=== PATIENT | female | born 1950 | race Caucasian/White ===

== ENCOUNTER 2022-03-08 05:44 | Inpatient (IN) | payer MEDICAID, MEDICARE ==
[2022-03-08] MEDS ORDERED: Diltiazem 25 MG/5 ML SDV IVPUSH ONE ×2 (05:46→07:37)
[2022-03-08] MEDS ORDERED: Albuterol/Ipratropium 3.0-0.5 MG/3 ML Neb Soln NEB ONE (05:46)
[2022-03-08] MEDS ORDERED: methylPREDNISolone Sodium Succinate 125 MG/2 ML SDV IVPUSH ONE (05:48)
[2022-03-08] MEDS ORDERED: Diltiazem 25 MG/5 ML SDV ONE (05:53)
[2022-03-08] MEDS ORDERED: Sodium Chloride 0.9% 1,000 ML IV SCH ×2 (06:00→10:15)
[2022-03-08 06:09] LABS: ESTIMATED GFR 53 mL/min (>60); TROPONIN I HIGH SENSITIVITY 10.5 pg/mL (<=60.3)
[2022-03-08] MEDS ORDERED: cefTRIAXone 2 GM in Sodium Chloride 0.9% 50 ML IV ONE (06:23)
[2022-03-08] MEDS ORDERED: Levofloxacin/Dextrose 5%-Water 750 MG in Premix Bag 1 BAG IV ONE (06:23)
[2022-03-08] MEDS: Diltiazem 100 MG in Sodium Chloride 0.9% 100 ML IV SCH ×4 (06:41→21:53)
[2022-03-08] MEDS ORDERED: Levalbuterol HCl 1.25 MG/3 ML Neb NEB ONE (06:44)
[2022-03-08 07:03] LABS: CORONAVIRUS COVID-19 NAA NEGATIVE (NEGATIVE)
[2022-03-08] MEDS ORDERED: Potassium Chloride 10 MEQ in Premix Bag 1 BAG IV SCH (08:00)
[2022-03-08] MEDS ORDERED: Potassium Chloride 10 MEQ in Premix Bag 1 BAG IV ONE (09:00)
[2022-03-08] MEDS ORDERED: Tiotropium Bromide 4 GM Inhalation Spray (2.5mcg/1 dose; 10 doses) INH SCH (14:14)
[2022-03-08] MEDS ORDERED: Ondansetron 4 MG/2 ML SDV IV PRN (14:14)
[2022-03-08] MEDS ORDERED: Sodium Chloride 0.9% 10 ML Syringe FLUSH PRN (14:14)
[2022-03-08] MEDS ORDERED: Gabapentin 100 MG Cap PO SCH (14:14)
[2022-03-08] MEDS: Albuterol/Ipratropium 3.0-0.5 MG/3 ML Neb Soln NEB SCH ×2 (14:32→20:06)
[2022-03-08] MEDS ORDERED: Doxycycline 100 MG in Sodium Chloride 0.9% 100 ML IV SCH (15:00)
[2022-03-08] MEDS ORDERED: Diltiazem 100 MG AdvVial ONE (15:05)
[2022-03-08] MEDS ORDERED: Sodium Chloride 0.9% 100 ML ONE (15:05)
[2022-03-08] MEDS: methylPREDNISolone Sodium Succinate 40 MG/1 ML SDV IVPUSH SCH ×2 (15:46→22:45)
[2022-03-08] MEDS: Enoxaparin 40 MG/0.4 ML Syringe SUBCUT SCH (15:48)
[2022-03-08] MEDS ORDERED: LORazepam 2 MG/ML SDV ONE (17:31)
[2022-03-08] MEDS ORDERED: LORazepam 2 MG/ML SDV IVPUSH ONE (18:00)
[2022-03-08] MEDS: LORazepam 2 MG/ML SDV IVPUSH PRN ×2 (20:06→22:46)
[2022-03-08] MEDS: Losartan 50 MG Tab PO SCH ×2 (20:21→22:11)
[2022-03-08] MEDS: Pantoprazole 40 MG Tab.CR PO SCH ×2 (20:21→21:47)
[2022-03-08] MEDS: Rosuvastatin 10 MG Tab PO SCH ×2 (20:22→21:47)
[2022-03-08] MEDS: Formoterol/Mometasone 200-5 MCG 8.8 GM Inhaler IH SCH ×2 (20:23→23:17)
[2022-03-08] MEDS: Cyclobenzaprine 10 MG Tab PO SCH ×2 (20:24→21:47)
[2022-03-08] MEDS: Simethicone 125 MG Tab.Chew PO SCH ×2 (20:26→21:47)
[2022-03-08] MEDS: Isosorbide Mononitrate 30 MG Tab.ER PO SCH ×2 (20:26→22:11)
[2022-03-08] MEDS: traZODone 50 MG Tab PO SCH ×2 (20:28→23:15)
[2022-03-08] MEDS: Montelukast 10 MG Tab PO SCH ×2 (20:29→21:47)
[2022-03-08] MEDS: Modafinil 100 MG Tab PO SCH ×2 (20:35→21:47)
[2022-03-08] MEDS ORDERED: SIMETHICONE 80 MG PO SCH (21:00)
[2022-03-08] MEDS ORDERED: MODAFINIL 200 MG PO SCH (21:00)
[2022-03-08] MEDS ORDERED: Non-Formulary Medication 1 Each (Losartan [Cozaar] 100 MG Tablet) PO SCH (21:00)
[2022-03-08] MEDS ORDERED: Non-Formulary Medication 1 Each (Omeprazole [Omeprazole] 40 MG Capsule.Dr) PO SCH (21:00)
[2022-03-08] MEDS ORDERED: Metoprolol Succinate 50 MG Tab.ER PO SCH (21:00)
[2022-03-08] MEDS ORDERED: Non-Formulary Medication 1 Each (Trazodone [Trazodone] 100 MG Tablet) PO SCH (21:00)
[2022-03-08] MEDS: Benzocaine/Cetylpyridinium/Menthol Lozenge MUCMEM PRN (23:24)
[2022-03-09] MEDS: LORazepam 2 MG/ML SDV IVPUSH PRN ×4 (00:19→22:46)
[2022-03-09] MEDS: Albuterol 0.083% 2.5 MG/3 ML Neb Soln NEB PRN (00:22)
[2022-03-09] MEDS: traZODone 50 MG Tab PO SCH (00:25)
[2022-03-09] MEDS: Diltiazem 100 MG in Sodium Chloride 0.9% 100 ML IV SCH ×2 (04:17→10:57)
[2022-03-09] MEDS: cefTRIAXone 1 GM in Sodium Chloride 0.9% 50 ML IV SCH (06:12)
[2022-03-09] MEDS: Albuterol/Ipratropium 3.0-0.5 MG/3 ML Neb Soln NEB SCH ×4 (07:03→20:11)
[2022-03-09] MEDS: Formoterol/Mometasone 200-5 MCG 8.8 GM Inhaler IH SCH ×2 (07:03→20:11)
[2022-03-09] MEDS ORDERED: Non-Formulary Medication 1 Each (Levothyroxine [Levothyroxine] 75 MCG Tablet) PO SCH (07:30)
[2022-03-09] MEDS ORDERED: Non-Formulary Medication 1 Each (Torsemide [Torsemide] 100 MG Tablet) PO SCH (07:30)
[2022-03-09] MEDS: methylPREDNISolone Sodium Succinate 40 MG/1 ML SDV IVPUSH SCH ×3 (07:58→23:00)
[2022-03-09] MEDS: Pantoprazole 40 MG Tab.CR PO SCH ×2 (07:59→20:11)
[2022-03-09] MEDS: Levothyroxine 25 MCG Tab PO SCH (07:59)
[2022-03-09] MEDS: Desvenlafaxine Succinate 25 MG TAB.ER PO SCH (08:01)
[2022-03-09] MEDS: Cyclobenzaprine 10 MG Tab PO SCH (08:01)
[2022-03-09] MEDS: Spironolactone 25 MG Tab PO SCH (08:01)
[2022-03-09] MEDS: Allopurinol 100 MG Tab PO SCH (08:02)
[2022-03-09] MEDS: Modafinil 100 MG Tab PO SCH (08:03)
[2022-03-09] MEDS: DULoxetine 30 MG Cap PO SCH (08:03)
[2022-03-09] MEDS: amLODIPine 5 MG Tab PO SCH (08:03)
[2022-03-09] MEDS: Tiotropium Bromide 4 GM Inhalation Spray (2.5mcg/1 dose; 10 doses) INH SCH (08:04)
[2022-03-09] MEDS: Sennosides 8.6 MG Tab PO SCH (08:06)
[2022-03-09] MEDS: Diclofenac Sodium 1% Gel 100 GM Tube TOP SCH (08:16)
[2022-03-09] MEDS: buPROPion 150 MG Tab.ER PO SCH (08:16)
[2022-03-09] MEDS: LORazepam 0.5 MG Tab PO PRN ×4 (08:52→20:11)
[2022-03-09] MEDS ORDERED: Non-Formulary Medication 1 Each (Cetirizine Hcl [Zyrtec] 10 MG Capsule) PO SCH (09:00)
[2022-03-09] MEDS ORDERED: DESVENLAFAXINE SUCCINATE PO SCH (09:00)
[2022-03-09] MEDS ORDERED: Non-Formulary Medication 1 Each (Rosuvastatin [Crestor] 20 MG Tablet) PO SCH (09:00)
[2022-03-09] MEDS ORDERED: Non-Formulary Medication 1 Each (Amlodipine [Norvasc] 10 MG Tablet) PO SCH (09:00)
[2022-03-09] MEDS ORDERED: Primidone 50 MG Tab PO SCH (09:00)
[2022-03-09] MEDS ORDERED: Non-Formulary Medication 1 Each (Duloxetine [Cymbalta] 60 MG Cap) PO SCH (09:00)
[2022-03-09] MEDS ORDERED: buPROPion 150 MG Tab.SR PO SCH (09:00)
[2022-03-09] MEDS ORDERED: Non-Formulary Medication 1 Each (Allopurinol [Zyloprim] 300 MG Tablet) PO SCH (09:00)
[2022-03-09] MEDS ORDERED: Cetirizine 10 MG Tab PO SCH (09:00)
[2022-03-09] MEDS ORDERED: Potassium Chloride 20 MEQ Tab.ER PO ONE (09:00)
[2022-03-09] MEDS ORDERED: Non-Formulary Medication 1 Each (Fluticasone Propion/Salmeterol [Fluticasone-Salmeterol 50 IH SCH (09:00)
[2022-03-09] MEDS ORDERED: Metoprolol Succinate 50 MG Tab.ER PO ONE (10:45)
[2022-03-09] MEDS: Potassium Chloride 20 MEQ Tab.ER PO SCH (10:59)
[2022-03-09] MEDS: Enoxaparin 40 MG/0.4 ML Syringe SUBCUT SCH (14:16)
[2022-03-09] MEDS ORDERED: Cetirizine 10 MG Tab PO PRN (15:56)
[2022-03-09] MEDS: Rosuvastatin 10 MG Tab PO SCH (20:10)
[2022-03-09] MEDS: Isosorbide Mononitrate 30 MG Tab.ER PO SCH (20:11)
[2022-03-09] MEDS: Simethicone 125 MG Tab.Chew PO SCH (20:11)
[2022-03-09] MEDS: Montelukast 10 MG Tab PO SCH (20:11)
[2022-03-09] MEDS: Losartan 50 MG Tab PO SCH (20:11)
[2022-03-09] MEDS: Acetaminophen 325 MG Tab PO PRN (20:11)
[2022-03-09] MEDS ORDERED: [UNRECOGNIZED DRUG - REMARK] IV ONE (23:00)
[2022-03-10] MEDS: LORazepam 2 MG/ML SDV IVPUSH PRN ×4 (03:10→23:14)
[2022-03-10] MEDS: cefTRIAXone 1 GM in Sodium Chloride 0.9% 50 ML IV SCH (05:46)
[2022-03-10] MEDS: Albuterol/Ipratropium 3.0-0.5 MG/3 ML Neb Soln NEB SCH ×4 (07:05→20:45)
[2022-03-10] MEDS: Formoterol/Mometasone 200-5 MCG 8.8 GM Inhaler IH SCH ×2 (07:05→20:47)
[2022-03-10] MEDS: Tiotropium Bromide 4 GM Inhalation Spray (2.5mcg/1 dose; 10 doses) INH SCH (07:05)
[2022-03-10] MEDS: methylPREDNISolone Sodium Succinate 40 MG/1 ML SDV IVPUSH SCH ×3 (07:48→22:15)
[2022-03-10] MEDS: Pantoprazole 40 MG Tab.CR PO SCH ×2 (07:49→20:46)
[2022-03-10] MEDS: Levothyroxine 25 MCG Tab PO SCH (07:49)
[2022-03-10] MEDS ORDERED: Levofloxacin/Dextrose 5%-Water 750 MG in Premix Bag 1 BAG IV SCH (08:00)
[2022-03-10] MEDS: Modafinil 100 MG Tab PO SCH ×3 (08:02→13:25)
[2022-03-10] MEDS: amLODIPine 5 MG Tab PO SCH (09:38)
[2022-03-10] MEDS: DULoxetine 30 MG Cap PO SCH (09:38)
[2022-03-10] MEDS: Desvenlafaxine Succinate 25 MG TAB.ER PO SCH (09:39)
[2022-03-10] MEDS: Spironolactone 25 MG Tab PO SCH (09:40)
[2022-03-10] MEDS: Potassium Chloride 20 MEQ Tab.ER PO SCH (09:46)
[2022-03-10] MEDS: Sennosides 8.6 MG Tab PO SCH (09:47)
[2022-03-10] MEDS: Diclofenac Sodium 1% Gel 100 GM Tube TOP SCH (09:49)
[2022-03-10] MEDS: Allopurinol 100 MG Tab PO SCH (09:50)
[2022-03-10] MEDS: buPROPion 150 MG Tab.ER PO SCH (09:50)
[2022-03-10] MEDS: Doxycycline 100 MG in Sodium Chloride 0.9% 100 ML IV SCH ×2 (11:09→22:15)
[2022-03-10] MEDS: Sodium Chloride 0.9% 1,000 ML IV SCH ×2 (14:07→22:15)
[2022-03-10] MEDS: Enoxaparin 40 MG/0.4 ML Syringe SUBCUT SCH (15:29)
[2022-03-10] MEDS: Simethicone 125 MG Tab.Chew PO SCH (20:45)
[2022-03-10] MEDS: Benzocaine/Cetylpyridinium/Menthol Lozenge MUCMEM PRN (20:46)
[2022-03-10] MEDS: Montelukast 10 MG Tab PO SCH (20:46)
[2022-03-10] MEDS: Amiodarone 200 MG Tab PO SCH (20:46)
[2022-03-10] MEDS: Isosorbide Mononitrate 30 MG Tab.ER PO SCH (20:46)
[2022-03-10] MEDS: Losartan 50 MG Tab PO SCH (20:46)
[2022-03-10] MEDS: Rosuvastatin 10 MG Tab PO SCH (20:47)
[2022-03-10] MEDS: Albuterol 0.083% 2.5 MG/3 ML Neb Soln NEB PRN (22:33)
[2022-03-11] MEDS: cefTRIAXone 1 GM in Sodium Chloride 0.9% 50 ML IV SCH (05:45)
[2022-03-11] MEDS: Formoterol/Mometasone 200-5 MCG 8.8 GM Inhaler IH SCH ×2 (07:09→20:41)
[2022-03-11] MEDS: Tiotropium Bromide 4 GM Inhalation Spray (2.5mcg/1 dose; 10 doses) INH SCH (07:10)
[2022-03-11] MEDS: Albuterol/Ipratropium 3.0-0.5 MG/3 ML Neb Soln NEB SCH ×4 (07:10→20:38)
[2022-03-11] MEDS: methylPREDNISolone Sodium Succinate 40 MG/1 ML SDV IVPUSH SCH ×3 (07:51→23:36)
[2022-03-11] MEDS: Levothyroxine 25 MCG Tab PO SCH (07:51)
[2022-03-11] MEDS: Pantoprazole 40 MG Tab.CR PO SCH ×2 (07:51→20:37)
[2022-03-11] MEDS: Modafinil 100 MG Tab PO SCH ×2 (07:59→11:24)
[2022-03-11] MEDS: Sodium Chloride 0.9% 1,000 ML IV SCH (08:01)
[2022-03-11] MEDS: Spironolactone 25 MG Tab PO SCH (09:07)
[2022-03-11] MEDS: Desvenlafaxine Succinate 25 MG TAB.ER PO SCH (09:07)
[2022-03-11] MEDS: amLODIPine 5 MG Tab PO SCH (09:09)
[2022-03-11] MEDS: DULoxetine 30 MG Cap PO SCH (09:11)
[2022-03-11] MEDS: Potassium Chloride 20 MEQ Tab.ER PO SCH (09:12)
[2022-03-11] MEDS: Allopurinol 100 MG Tab PO SCH (09:13)
[2022-03-11] MEDS: Metoprolol Tartrate 50 MG Tab PO SCH ×2 (09:14→20:37)
[2022-03-11] MEDS: buPROPion 150 MG Tab.ER PO SCH (09:15)
[2022-03-11] MEDS: Diclofenac Sodium 1% Gel 100 GM Tube TOP SCH (09:15)
[2022-03-11] MEDS: Sennosides 8.6 MG Tab PO SCH (09:16)
[2022-03-11] MEDS: Amiodarone 200 MG Tab PO SCH ×2 (10:12→20:37)
[2022-03-11] MEDS ORDERED: Sodium Chloride 0.9% 1,000 ML IV SCH (10:45)
[2022-03-11] MEDS: Doxycycline 100 MG in Sodium Chloride 0.9% 100 ML IV SCH ×2 (11:23→23:36)
[2022-03-11] MEDS: Benzocaine/Cetylpyridinium/Menthol Lozenge MUCMEM PRN (12:43)
[2022-03-11] MEDS: LORazepam 2 MG/ML SDV IVPUSH PRN ×2 (14:32→20:38)
[2022-03-11] MEDS: Enoxaparin 40 MG/0.4 ML Syringe SUBCUT SCH (14:38)
[2022-03-11] MEDS: Simethicone 125 MG Tab.Chew PO SCH (20:36)
[2022-03-11] MEDS: Rosuvastatin 10 MG Tab PO SCH (20:36)
[2022-03-11] MEDS: Losartan 50 MG Tab PO SCH (20:36)
[2022-03-11] MEDS: Montelukast 10 MG Tab PO SCH (20:38)
[2022-03-11] MEDS: Isosorbide Mononitrate 30 MG Tab.ER PO SCH (20:38)
[2022-03-11] MEDS: Albuterol 0.083% 2.5 MG/3 ML Neb Soln NEB PRN (23:41)
[2022-03-12] MEDS: Albuterol 0.083% 2.5 MG/3 ML Neb Soln NEB PRN ×2 (03:48→22:21)
[2022-03-12] MEDS: cefTRIAXone 1 GM in Sodium Chloride 0.9% 50 ML IV SCH (05:50)
[2022-03-12] MEDS: Tiotropium Bromide 4 GM Inhalation Spray (2.5mcg/1 dose; 10 doses) INH SCH (07:25)
[2022-03-12] MEDS: Formoterol/Mometasone 200-5 MCG 8.8 GM Inhaler IH SCH ×2 (07:25→20:55)
[2022-03-12] MEDS: Albuterol/Ipratropium 3.0-0.5 MG/3 ML Neb Soln NEB SCH ×4 (07:25→20:00)
[2022-03-12] MEDS: methylPREDNISolone Sodium Succinate 40 MG/1 ML SDV IVPUSH SCH (08:00)
[2022-03-12] MEDS: Pantoprazole 40 MG Tab.CR PO SCH ×2 (08:02→19:52)
[2022-03-12] MEDS: Modafinil 100 MG Tab PO SCH ×2 (08:03→11:50)
[2022-03-12] MEDS: Levothyroxine 25 MCG Tab PO SCH (08:03)
[2022-03-12] MEDS ORDERED: Sodium Phosphate,Monobasic/Sodium Phosphate,Dibasic Enema 133 ML Bottle RECTAL PRN (09:16)
[2022-03-12] MEDS ORDERED: Polyethylene Glycol 3350 Powder 17 GM Packet PO ONE (09:30)
[2022-03-12] MEDS: Desvenlafaxine Succinate 25 MG TAB.ER PO SCH (09:40)
[2022-03-12] MEDS: Metoprolol Tartrate 50 MG Tab PO SCH ×2 (09:45→20:53)
[2022-03-12] MEDS: Potassium Chloride 20 MEQ Tab.ER PO SCH (09:45)
[2022-03-12] MEDS: amLODIPine 5 MG Tab PO SCH (09:46)
[2022-03-12] MEDS: Allopurinol 100 MG Tab PO SCH (09:46)
[2022-03-12] MEDS: DULoxetine 30 MG Cap PO SCH (09:47)
[2022-03-12] MEDS: Amiodarone 200 MG Tab PO SCH ×2 (09:47→20:52)
[2022-03-12] MEDS: Spironolactone 25 MG Tab PO SCH (09:47)
[2022-03-12] MEDS: buPROPion 150 MG Tab.ER PO SCH (09:47)
[2022-03-12] MEDS: Diclofenac Sodium 1% Gel 100 GM Tube TOP SCH (09:48)
[2022-03-12] MEDS: Sennosides 8.6 MG Tab PO SCH (09:48)
[2022-03-12] MEDS: predniSONE 20 MG Tab PO SCH (09:51)
[2022-03-12] MEDS ORDERED: Bisacodyl 10 MG Supp RECTAL ONE (10:00)
[2022-03-12] MEDS: Doxycycline 100 MG in Sodium Chloride 0.9% 100 ML IV SCH ×2 (11:45→23:31)
[2022-03-12] MEDS: Enoxaparin 40 MG/0.4 ML Syringe SUBCUT SCH (14:55)
[2022-03-12] MEDS: Acetaminophen 325 MG Tab PO PRN (17:34)
[2022-03-12] MEDS: LORazepam 2 MG/ML SDV IVPUSH PRN (19:52)
[2022-03-12] MEDS: guaiFENesin/Dextromethorphan 100-10 MG/5 ML Soln 10 ML Cup PO PRN (19:52)
[2022-03-12] MEDS: Losartan 50 MG Tab PO SCH (20:51)
[2022-03-12] MEDS: Simethicone 125 MG Tab.Chew PO SCH ×2 (20:51→22:17)
[2022-03-12] MEDS: Isosorbide Mononitrate 30 MG Tab.ER PO SCH (20:54)
[2022-03-12] MEDS: Rosuvastatin 10 MG Tab PO SCH (20:54)
[2022-03-12] MEDS: Montelukast 10 MG Tab PO SCH (20:55)
[2022-03-13] MEDS: Acetaminophen 325 MG Tab PO PRN (02:04)
[2022-03-13] MEDS: Albuterol 0.083% 2.5 MG/3 ML Neb Soln NEB PRN ×2 (02:05→21:42)
[2022-03-13] MEDS: guaiFENesin/Dextromethorphan 100-10 MG/5 ML Soln 10 ML Cup PO PRN ×3 (04:30→18:52)
[2022-03-13] MEDS: cefTRIAXone 1 GM in Sodium Chloride 0.9% 50 ML IV SCH (05:37)
[2022-03-13] MEDS: Formoterol/Mometasone 200-5 MCG 8.8 GM Inhaler IH SCH ×2 (07:04→20:15)
[2022-03-13] MEDS: Tiotropium Bromide 4 GM Inhalation Spray (2.5mcg/1 dose; 10 doses) INH SCH (07:04)
[2022-03-13] MEDS: Albuterol/Ipratropium 3.0-0.5 MG/3 ML Neb Soln NEB SCH ×4 (07:04→20:16)
[2022-03-13] MEDS: Levothyroxine 25 MCG Tab PO SCH (07:18)
[2022-03-13] MEDS: Pantoprazole 40 MG Tab.CR PO SCH ×2 (07:18→20:14)
[2022-03-13] MEDS: Modafinil 100 MG Tab PO SCH ×2 (08:50→11:07)
[2022-03-13] MEDS: Potassium Chloride 20 MEQ Tab.ER PO SCH (08:53)
[2022-03-13] MEDS: Metoprolol Tartrate 50 MG Tab PO SCH ×2 (08:53→20:16)
[2022-03-13] MEDS: predniSONE 20 MG Tab PO SCH (08:54)
[2022-03-13] MEDS: DULoxetine 30 MG Cap PO SCH (08:54)
[2022-03-13] MEDS: amLODIPine 5 MG Tab PO SCH (08:54)
[2022-03-13] MEDS: Allopurinol 100 MG Tab PO SCH (08:54)
[2022-03-13] MEDS: Desvenlafaxine Succinate 25 MG TAB.ER PO SCH (08:55)
[2022-03-13] MEDS: Amiodarone 200 MG Tab PO SCH ×2 (08:55→20:17)
[2022-03-13] MEDS: Sennosides 8.6 MG Tab PO SCH (08:55)
[2022-03-13] MEDS: Diclofenac Sodium 1% Gel 100 GM Tube TOP SCH (08:55)
[2022-03-13] MEDS: buPROPion 150 MG Tab.ER PO SCH (08:55)
[2022-03-13] MEDS: Spironolactone 25 MG Tab PO SCH (08:55)
[2022-03-13] MEDS: Doxycycline 100 MG in Sodium Chloride 0.9% 100 ML IV SCH (11:06)
[2022-03-13] MEDS ORDERED: Digoxin 125 MCG Tab PO ONE (12:00)
[2022-03-13] MEDS: Lidocaine 2% 30 ML, Alum Hydrox/Mag Hydrox/Simeth 30 ML, diphenhydrAMINE 75 MG PO PRN ×9 (12:18→23:58)
[2022-03-13] MEDS: Nystatin Susp 100,000 Unit/ML 5 ML UD Cup PO SCH ×3 (12:18→21:42)
[2022-03-13] MEDS: Enoxaparin 40 MG/0.4 ML Syringe SUBCUT SCH (15:33)
[2022-03-13] MEDS ORDERED: Bumetanide 1 MG/4 ML MDV IVPUSH ONE (16:00)
[2022-03-13] MEDS: Rosuvastatin 10 MG Tab PO SCH (20:14)
[2022-03-13] MEDS: Isosorbide Mononitrate 30 MG Tab.ER PO SCH (20:16)
[2022-03-13] MEDS: Doxycycline 100 MG Cap PO SCH (20:16)
[2022-03-13] MEDS: Montelukast 10 MG Tab PO SCH (20:17)
[2022-03-13] MEDS: Simethicone 125 MG Tab.Chew PO SCH (20:17)
[2022-03-13] MEDS: Losartan 50 MG Tab PO SCH (20:17)
[2022-03-13] MEDS: LORazepam 2 MG/ML SDV IVPUSH PRN (20:50)
[2022-03-14] MEDS: Albuterol 0.083% 2.5 MG/3 ML Neb Soln NEB PRN ×3 (00:01→22:16)
[2022-03-14] MEDS: Lidocaine 2% 30 ML, Alum Hydrox/Mag Hydrox/Simeth 30 ML, diphenhydrAMINE 75 MG PO PRN ×3 (04:30)
[2022-03-14] MEDS: Nystatin Susp 100,000 Unit/ML 5 ML UD Cup PO SCH ×5 (05:47→21:39)
[2022-03-14] MEDS: cefTRIAXone 1 GM in Sodium Chloride 0.9% 50 ML IV SCH (05:52)
[2022-03-14] MEDS: guaiFENesin/Dextromethorphan 100-10 MG/5 ML Soln 10 ML Cup PO PRN ×2 (06:46→14:35)
[2022-03-14] MEDS: Formoterol/Mometasone 200-5 MCG 8.8 GM Inhaler IH SCH ×2 (07:00→20:27)
[2022-03-14] MEDS: Tiotropium Bromide 4 GM Inhalation Spray (2.5mcg/1 dose; 10 doses) INH SCH (07:00)
[2022-03-14] MEDS: Albuterol/Ipratropium 3.0-0.5 MG/3 ML Neb Soln NEB SCH ×4 (07:00→20:28)
[2022-03-14] MEDS ORDERED: Bumetanide 1 MG/4 ML MDV IVPUSH ONE ×2 (08:30→16:00)
[2022-03-14] MEDS: Diclofenac Sodium 1% Gel 100 GM Tube TOP SCH (08:40)
[2022-03-14] MEDS: Desvenlafaxine Succinate 25 MG TAB.ER PO SCH (08:41)
[2022-03-14] MEDS: Sennosides 8.6 MG Tab PO SCH (08:41)
[2022-03-14] MEDS: amLODIPine 5 MG Tab PO SCH (08:41)
[2022-03-14] MEDS: Metoprolol Tartrate 50 MG Tab PO SCH ×2 (08:42→20:30)
[2022-03-14] MEDS: DULoxetine 30 MG Cap PO SCH (08:42)
[2022-03-14] MEDS: Potassium Chloride 20 MEQ Tab.ER PO SCH (08:42)
[2022-03-14] MEDS: Amiodarone 200 MG Tab PO SCH ×2 (08:42→20:30)
[2022-03-14] MEDS: Allopurinol 100 MG Tab PO SCH (08:42)
[2022-03-14] MEDS: buPROPion 150 MG Tab.ER PO SCH (08:43)
[2022-03-14] MEDS: predniSONE 20 MG Tab PO SCH (08:43)
[2022-03-14] MEDS: Pantoprazole 40 MG Tab.CR PO SCH ×2 (08:43→20:29)
[2022-03-14] MEDS: Spironolactone 25 MG Tab PO SCH (08:43)
[2022-03-14] MEDS: Levothyroxine 25 MCG Tab PO SCH (08:43)
[2022-03-14] MEDS: Doxycycline 100 MG Cap PO SCH ×2 (08:44→20:34)
[2022-03-14] MEDS: Modafinil 100 MG Tab PO SCH ×2 (08:52→14:32)
[2022-03-14] MEDS: LORazepam 2 MG/ML SDV IVPUSH PRN ×2 (12:27→23:50)
[2022-03-14] MEDS: MAG HYDROX PO PRN ×3 (14:32)
[2022-03-14] MEDS: LIDOCAINE 2% PO PRN ×3 (14:32)
[2022-03-14] MEDS: ALUM HYDROX PO PRN ×3 (14:32)
[2022-03-14] MEDS: SIMETH PO PRN ×3 (14:32)
[2022-03-14] MEDS: DIPHENHYDRAMINE PO PRN ×3 (14:32)
[2022-03-14] MEDS: Acetaminophen 325 MG Tab PO PRN (14:35)
[2022-03-14] MEDS ORDERED: Enoxaparin 30 MG/0.3 ML Syringe SUBCUT SCH (16:00)
[2022-03-14] MEDS: Rosuvastatin 10 MG Tab PO SCH (20:29)
[2022-03-14] MEDS: Losartan 50 MG Tab PO SCH (20:31)
[2022-03-14] MEDS: Simethicone 125 MG Tab.Chew PO SCH (20:32)
[2022-03-14] MEDS: Isosorbide Mononitrate 30 MG Tab.ER PO SCH (20:33)
[2022-03-14] MEDS: Montelukast 10 MG Tab PO SCH (20:34)
[2022-03-14] MEDS: Benzocaine/Cetylpyridinium/Menthol Lozenge MUCMEM PRN (20:36)
[2022-03-15] MEDS: Acetaminophen 325 MG Tab PO PRN ×2 (02:21→20:28)
[2022-03-15] MEDS: MAG HYDROX PO PRN ×6 (02:22→07:07)
[2022-03-15] MEDS: SIMETH PO PRN ×6 (02:22→07:07)
[2022-03-15] MEDS: LIDOCAINE 2% PO PRN ×6 (02:22→07:07)
[2022-03-15] MEDS: DIPHENHYDRAMINE PO PRN ×6 (02:22→07:07)
[2022-03-15] MEDS: ALUM HYDROX PO PRN ×6 (02:22→07:07)
[2022-03-15] MEDS: Albuterol 0.083% 2.5 MG/3 ML Neb Soln NEB PRN (04:41)
[2022-03-15] MEDS: Nystatin Susp 100,000 Unit/ML 5 ML UD Cup PO SCH ×4 (05:49→22:44)
[2022-03-15] MEDS: Levothyroxine 25 MCG Tab PO SCH (07:05)
[2022-03-15] MEDS: Albuterol/Ipratropium 3.0-0.5 MG/3 ML Neb Soln NEB SCH ×4 (07:24→20:28)
[2022-03-15] MEDS: Formoterol/Mometasone 200-5 MCG 8.8 GM Inhaler IH SCH ×2 (07:24→20:29)
[2022-03-15] MEDS: Tiotropium Bromide 4 GM Inhalation Spray (2.5mcg/1 dose; 10 doses) INH SCH (07:26)
[2022-03-15] MEDS: predniSONE 20 MG Tab PO SCH (07:45)
[2022-03-15] MEDS: Pantoprazole 40 MG Tab.CR PO SCH ×2 (07:45→20:28)
[2022-03-15] MEDS: Modafinil 100 MG Tab PO SCH ×2 (07:51→12:47)
[2022-03-15] MEDS: Spironolactone 25 MG Tab PO SCH (08:51)
[2022-03-15] MEDS: Allopurinol 100 MG Tab PO SCH (08:51)
[2022-03-15] MEDS: Desvenlafaxine Succinate 25 MG TAB.ER PO SCH (08:51)
[2022-03-15] MEDS: buPROPion 150 MG Tab.ER PO SCH (08:51)
[2022-03-15] MEDS: Doxycycline 100 MG Cap PO SCH ×2 (08:51→20:29)
[2022-03-15] MEDS: Bumetanide 1 MG Tab PO SCH ×2 (08:51→14:22)
[2022-03-15] MEDS: Amiodarone 200 MG Tab PO SCH ×2 (08:52→20:30)
[2022-03-15] MEDS: Potassium Chloride 20 MEQ Tab.ER PO SCH (08:52)
[2022-03-15] MEDS: Diclofenac Sodium 1% Gel 100 GM Tube TOP SCH (08:52)
[2022-03-15] MEDS: amLODIPine 5 MG Tab PO SCH (08:52)
[2022-03-15] MEDS: Metoprolol Tartrate 50 MG Tab PO SCH ×2 (08:55→20:30)
[2022-03-15] MEDS: Cefdinir 300 MG Cap PO SCH ×2 (08:58→20:29)
[2022-03-15] MEDS: DULoxetine 30 MG Cap PO SCH (08:59)
[2022-03-15] MEDS: Sennosides 8.6 MG Tab PO SCH (08:59)
[2022-03-15] MEDS ORDERED: Bumetanide 2.5 MG/10 ML MDV IVPUSH SCH (09:00)
[2022-03-15] MEDS ORDERED: Enoxaparin 40 MG/0.4 ML Syringe SUBCUT SCH (16:00)
[2022-03-15] MEDS ORDERED: Potassium Chloride 20 MEQ Tab.ER PO ONE (16:00)
[2022-03-15] MEDS: guaiFENesin/Dextromethorphan 100-10 MG/5 ML Soln 10 ML Cup PO PRN (20:28)
[2022-03-15] MEDS: Montelukast 10 MG Tab PO SCH (20:29)
[2022-03-15] MEDS: Rosuvastatin 10 MG Tab PO SCH (20:29)
[2022-03-15] MEDS: Simethicone 125 MG Tab.Chew PO SCH ×2 (20:29→20:34)
[2022-03-15] MEDS: Losartan 50 MG Tab PO SCH (20:30)
[2022-03-15] MEDS: Isosorbide Mononitrate 30 MG Tab.ER PO SCH (20:30)
[2022-03-16] MEDS: Albuterol 0.083% 2.5 MG/3 ML Neb Soln NEB PRN ×2 (02:37→19:28)
[2022-03-16] MEDS: Nystatin Susp 100,000 Unit/ML 5 ML UD Cup PO SCH ×4 (05:15→21:21)
[2022-03-16] MEDS: Formoterol/Mometasone 200-5 MCG 8.8 GM Inhaler IH SCH ×2 (07:02→21:20)
[2022-03-16] MEDS: Albuterol/Ipratropium 3.0-0.5 MG/3 ML Neb Soln NEB SCH ×4 (07:02→21:23)
[2022-03-16] MEDS: Tiotropium Bromide 4 GM Inhalation Spray (2.5mcg/1 dose; 10 doses) INH SCH (07:03)
[2022-03-16] MEDS: Pantoprazole 40 MG Tab.CR PO SCH ×2 (07:20→21:22)
[2022-03-16] MEDS: Levothyroxine 25 MCG Tab PO SCH (07:20)
[2022-03-16] MEDS: Bumetanide 1 MG Tab PO SCH ×2 (07:21→14:57)
[2022-03-16] MEDS: predniSONE 20 MG Tab PO SCH (07:21)
[2022-03-16] MEDS: Modafinil 100 MG Tab PO SCH ×2 (07:23→14:50)
[2022-03-16] MEDS: Spironolactone 25 MG Tab PO SCH (09:19)
[2022-03-16] MEDS: Desvenlafaxine Succinate 25 MG TAB.ER PO SCH (09:19)
[2022-03-16] MEDS: buPROPion 150 MG Tab.ER PO SCH (09:19)
[2022-03-16] MEDS: Sennosides 8.6 MG Tab PO SCH (09:20)
[2022-03-16] MEDS: Allopurinol 100 MG Tab PO SCH (09:20)
[2022-03-16] MEDS: Amiodarone 200 MG Tab PO SCH ×2 (09:20→21:22)
[2022-03-16] MEDS: Potassium Chloride 20 MEQ Tab.ER PO SCH (09:20)
[2022-03-16] MEDS: DULoxetine 30 MG Cap PO SCH (09:20)
[2022-03-16] MEDS: Diclofenac Sodium 1% Gel 100 GM Tube TOP SCH (09:21)
[2022-03-16] MEDS: amLODIPine 5 MG Tab PO SCH (09:27)
[2022-03-16] MEDS: Metoprolol Tartrate 50 MG Tab PO SCH ×2 (09:31→21:22)
[2022-03-16] MEDS: Acetaminophen 325 MG Tab PO PRN (12:03)
[2022-03-16] MEDS ORDERED: Benzonatate 100 MG Cap PO PRN (12:17)
[2022-03-16] MEDS ORDERED: Ondansetron 4 MG Tab.DIS PO PRN (19:33)
[2022-03-16] MEDS: LORazepam 0.5 MG Tab PO PRN (19:36)
[2022-03-16] MEDS: Simethicone 125 MG Tab.Chew PO SCH (21:21)
[2022-03-16] MEDS: Montelukast 10 MG Tab PO SCH (21:22)
[2022-03-16] MEDS: Isosorbide Mononitrate 30 MG Tab.ER PO SCH (21:23)
[2022-03-16] MEDS: Losartan 50 MG Tab PO SCH (21:23)
[2022-03-17] MEDS: Nystatin Susp 100,000 Unit/ML 5 ML UD Cup PO SCH ×2 (05:08→09:08)
[2022-03-17] MEDS: Albuterol 0.083% 2.5 MG/3 ML Neb Soln NEB PRN ×2 (06:14→16:51)
[2022-03-17] MEDS: Levothyroxine 25 MCG Tab PO SCH (07:16)
[2022-03-17] MEDS: Tiotropium Bromide 4 GM Inhalation Spray (2.5mcg/1 dose; 10 doses) INH SCH (07:17)
[2022-03-17] MEDS: Albuterol/Ipratropium 3.0-0.5 MG/3 ML Neb Soln NEB SCH ×4 (07:17→20:19)
[2022-03-17] MEDS: Pantoprazole 40 MG Tab.CR PO SCH ×2 (07:17→20:18)
[2022-03-17] MEDS: Formoterol/Mometasone 200-5 MCG 8.8 GM Inhaler IH SCH ×2 (07:17→20:18)
[2022-03-17] MEDS: Bumetanide 1 MG Tab PO SCH ×2 (07:17→13:57)
[2022-03-17] MEDS: predniSONE 20 MG Tab PO SCH (07:18)
[2022-03-17] MEDS: Modafinil 100 MG Tab PO SCH ×2 (07:20→11:44)
[2022-03-17] MEDS: LORazepam 0.5 MG Tab PO PRN (07:25)
[2022-03-17] MEDS: DULoxetine 30 MG Cap PO SCH (08:06)
[2022-03-17] MEDS: amLODIPine 5 MG Tab PO SCH (08:07)
[2022-03-17] MEDS: Diclofenac Sodium 1% Gel 100 GM Tube TOP SCH (08:08)
[2022-03-17] MEDS: Desvenlafaxine Succinate 25 MG TAB.ER PO SCH (08:08)
[2022-03-17] MEDS: Sennosides 8.6 MG Tab PO SCH (08:08)
[2022-03-17] MEDS: buPROPion 150 MG Tab.ER PO SCH (08:08)
[2022-03-17] MEDS: Potassium Chloride 20 MEQ Tab.ER PO SCH (08:09)
[2022-03-17] MEDS: Metoprolol Tartrate 50 MG Tab PO SCH ×2 (08:09→20:19)
[2022-03-17] MEDS: Spironolactone 25 MG Tab PO SCH (08:09)
[2022-03-17] MEDS: Amiodarone 200 MG Tab PO SCH ×2 (08:09→20:18)
[2022-03-17] MEDS: SIMETH PO PRN ×3 (09:08)
[2022-03-17] MEDS: LIDOCAINE 2% PO PRN ×3 (09:08)
[2022-03-17] MEDS: MAG HYDROX PO PRN ×3 (09:08)
[2022-03-17] MEDS: ALUM HYDROX PO PRN ×3 (09:08)
[2022-03-17] MEDS: DIPHENHYDRAMINE PO PRN ×3 (09:08)
[2022-03-17] MEDS: Acetaminophen 325 MG Tab PO PRN (11:44)
[2022-03-17] MEDS: Clotrimazole 10 MG Troche PO SCH ×3 (13:57→22:18)
[2022-03-17] MEDS: Losartan 50 MG Tab PO SCH (20:18)
[2022-03-17] MEDS: Simethicone 125 MG Tab.Chew PO SCH (20:19)
[2022-03-17] MEDS: Montelukast 10 MG Tab PO SCH (20:19)
[2022-03-17] MEDS: Isosorbide Mononitrate 30 MG Tab.ER PO SCH (20:19)
[2022-03-17] MEDS: guaiFENesin/Dextromethorphan 100-10 MG/5 ML Soln 10 ML Cup PO PRN (23:44)
[2022-03-18] MEDS: Albuterol 0.083% 2.5 MG/3 ML Neb Soln NEB PRN ×3 (02:04→19:42)
[2022-03-18] MEDS: Clotrimazole 10 MG Troche PO SCH ×5 (05:24→21:38)
[2022-03-18] MEDS: Tiotropium Bromide 4 GM Inhalation Spray (2.5mcg/1 dose; 10 doses) INH SCH (07:10)
[2022-03-18] MEDS: Formoterol/Mometasone 200-5 MCG 8.8 GM Inhaler IH SCH ×2 (07:10→20:31)
[2022-03-18] MEDS: Albuterol/Ipratropium 3.0-0.5 MG/3 ML Neb Soln NEB SCH ×4 (07:10→20:31)
[2022-03-18] MEDS: Levothyroxine 25 MCG Tab PO SCH (07:43)
[2022-03-18] MEDS: Pantoprazole 40 MG Tab.CR PO SCH ×2 (08:01→20:31)
[2022-03-18] MEDS: Bumetanide 1 MG Tab PO SCH ×2 (08:01→14:18)
[2022-03-18] MEDS: Modafinil 100 MG Tab PO SCH ×2 (08:02→11:58)
[2022-03-18] MEDS: Spironolactone 25 MG Tab PO SCH (08:03)
[2022-03-18] MEDS: DULoxetine 30 MG Cap PO SCH (08:03)
[2022-03-18] MEDS: Amiodarone 200 MG Tab PO SCH ×2 (08:03→20:31)
[2022-03-18] MEDS: Potassium Chloride 20 MEQ Tab.ER PO SCH (08:04)
[2022-03-18] MEDS: Desvenlafaxine Succinate 25 MG TAB.ER PO SCH (08:04)
[2022-03-18] MEDS: Metoprolol Tartrate 50 MG Tab PO SCH ×2 (08:05→20:31)
[2022-03-18] MEDS: amLODIPine 5 MG Tab PO SCH (08:05)
[2022-03-18] MEDS: Sennosides 8.6 MG Tab PO SCH (08:07)
[2022-03-18] MEDS: buPROPion 150 MG Tab.ER PO SCH (08:07)
[2022-03-18] MEDS: predniSONE 20 MG Tab PO SCH (08:08)
[2022-03-18] MEDS: LORazepam 0.5 MG Tab PO PRN ×3 (08:10→21:38)
[2022-03-18] MEDS: Diclofenac Sodium 1% Gel 100 GM Tube TOP SCH (09:32)
[2022-03-18] MEDS: guaiFENesin/Dextromethorphan 100-10 MG/5 ML Soln 10 ML Cup PO PRN (13:41)
[2022-03-18] MEDS: Acetaminophen 325 MG Tab PO PRN (15:12)
[2022-03-18] MEDS: Morphine 10 MG/0.5 ML Oral Syringe PO PRN (16:40)
[2022-03-18] MEDS: Losartan 50 MG Tab PO SCH (20:31)
[2022-03-18] MEDS: Isosorbide Mononitrate 30 MG Tab.ER PO SCH (20:31)
[2022-03-18] MEDS: Montelukast 10 MG Tab PO SCH (20:32)
[2022-03-18] MEDS: Simethicone 125 MG Tab.Chew PO SCH (20:32)
[2022-03-19] MEDS: Clotrimazole 10 MG Troche PO SCH ×2 (05:48→09:42)
[2022-03-19] MEDS: Albuterol 0.083% 2.5 MG/3 ML Neb Soln NEB PRN (05:50)
[2022-03-19] MEDS: Albuterol/Ipratropium 3.0-0.5 MG/3 ML Neb Soln NEB SCH ×2 (07:07→10:14)
[2022-03-19] MEDS: Formoterol/Mometasone 200-5 MCG 8.8 GM Inhaler IH SCH (07:07)
[2022-03-19] MEDS: Tiotropium Bromide 4 GM Inhalation Spray (2.5mcg/1 dose; 10 doses) INH SCH (07:08)
[2022-03-19] MEDS: LORazepam 0.5 MG Tab PO PRN (08:07)
[2022-03-19] MEDS: Bumetanide 1 MG Tab PO SCH (08:08)
[2022-03-19] MEDS: Metoprolol Tartrate 50 MG Tab PO SCH (08:08)
[2022-03-19] MEDS: Spironolactone 25 MG Tab PO SCH (08:09)
[2022-03-19] MEDS: predniSONE 20 MG Tab PO SCH (08:10)
[2022-03-19] MEDS: Amiodarone 200 MG Tab PO SCH (08:10)
[2022-03-19] MEDS: Levothyroxine 25 MCG Tab PO SCH (08:11)
[2022-03-19] MEDS: amLODIPine 5 MG Tab PO SCH (08:11)
[2022-03-19] MEDS: Pantoprazole 40 MG Tab.CR PO SCH (09:37)
[2022-03-19] MEDS: Diclofenac Sodium 1% Gel 100 GM Tube TOP SCH (09:38)
[2022-03-19] MEDS: Modafinil 100 MG Tab PO SCH ×2 (09:40→12:11)
[2022-03-19] MEDS: buPROPion 150 MG Tab.ER PO SCH (09:41)
[2022-03-19] MEDS: Desvenlafaxine Succinate 25 MG TAB.ER PO SCH (09:41)
[2022-03-19] MEDS: DULoxetine 30 MG Cap PO SCH (09:41)
[2022-03-19] MEDS: Potassium Chloride 20 MEQ Tab.ER PO SCH (09:42)
[2022-03-19] MEDS: Sennosides 8.6 MG Tab PO SCH (09:42)
[2022-03-19] MEDS: Morphine 10 MG/0.5 ML Oral Syringe PO PRN (10:07)
[2022-03-19] MEDS ORDERED: Morphine 10 MG/0.5 ML Oral Syringe PO ONE ×2 (10:21→11:36)
[2022-03-19] MEDS: LORazepam ORAL Concentrate 1MG/0.5ML U/D PO PRN ×2 (10:30→11:25)
[2022-03-19] MEDS ORDERED: Morphine 10 MG/0.5 ML Oral Syringe PO PRN (10:30)
[2022-03-19] MEDS ORDERED: LORazepam ORAL Concentrate 1MG/0.5ML U/D PO ONE (11:38)
== END 2022-03-19 17:40 | disposition expired | DRG 193 ==
LOC: JP.ED 05:44 → JP.ICU 12:25 → JP.MS 03-15 20:07
PROVIDERS: ADMIT Hospitalist; ATTEND Internal Medicine
PROC: 5A09357 Assistance with Respiratory Ventilation, Less than 24 Consecutive Hours, Continuous Positive Airway Pressure (ICD-10-PCS; principal; 2022-03-08)
DX: J18.0 Bronchopneumonia, unspecified organism (principal); J18.9 Pneumonia, unspecified organism; J96.21 Acute and chronic respiratory failure with hypoxia; J96.22 Acute and chronic respiratory failure with hypercapnia; N17.9 Acute kidney failure, unspecified; N18.30 Chronic kidney disease, stage 3 unspecified; J44.9 Chronic obstructive pulmonary disease, unspecified; J96.11 Chronic respiratory failure with hypoxia; Z99.81 Dependence on supplemental oxygen; J44.0 Chronic obstructive pulmonary disease with (acute) lower respiratory infection; E78.5 Hyperlipidemia, unspecified; J44.1 Chronic obstructive pulmonary disease with (acute) exacerbation; I50.32 Chronic diastolic (congestive) heart failure; Z68.41 Body mass index [BMI] 40.0-44.9, adult; I13.0 Hypertensive heart and chronic kidney disease with heart failure and stage 1 through stage 4 chronic kidney disease, or unspecified chronic kidney disease; Z95.5 Presence of coronary angioplasty implant and graft; Z20.822 Contact with and (suspected) exposure to COVID-19; Z66 Do not resuscitate; E03.9 Hypothyroidism, unspecified; E66.01 Morbid (severe) obesity due to excess calories; I25.10 Atherosclerotic heart disease of native coronary artery without angina pectoris; G47.33 Obstructive sleep apnea (adult) (pediatric); E87.6 Hypokalemia; N18.9 Chronic kidney disease, unspecified; I48.91 Unspecified atrial fibrillation; Z51.5 Encounter for palliative care; Z88.0 Allergy status to penicillin; Z91.09 Other allergy status, other than to drugs and biological substances; Z88.5 Allergy status to narcotic agent; Z88.2 Allergy status to sulfonamides; Z88.8 Allergy status to other drugs, medicaments and biological substances; Z79.890 Hormone replacement therapy; Z79.899 Other long term (current) drug therapy; Z79.51 Long term (current) use of inhaled steroids; Z87.891 Personal history of nicotine dependence; Z79.52 Long term (current) use of systemic steroids; Z90.49 Acquired absence of other specified parts of digestive tract; Z98.890 Other specified postprocedural states
CPT/HCPCS: 0241U; 36415; 36600; 71045; 71045-26; 80048; 80053; 82803; 83605; 83735; 84484; 85025; 85027; 93005; 93010; 93306; 94640; 94660; 96361; 96365; 96366; 96368; 96375; 96376; 99222; 99232; 99238; 99285; 99285-25; A9270-GY; J0282; J0696; J1650; J1956; J2060; J2920; J2930; J3480; J3490; J7030; J7060; J7512; J7612-GY; J7620; Q0162